=== PATIENT | male | born 1995 | race Caucasian/White ===

== ENCOUNTER 2019-01-14 14:24 | Emergency (ER) | payer BC ==
[~2019-01-14] VITALS: Ht 167.6 cm; Wt 121.1 kg
[2019-01-14 14:50] VITALS: Ht 167.6 cm; Wt 121.1 kg
[2019-01-14 15:21] LABS: BASOPHIL % 0.3 % (0-2); PLATELET COUNT 315 x10^3mcL (130-400); RED CELL DISTRIBUTION WIDTH 13.4 % (11.5-14.5)
[2019-01-14 18:11] VITALS: BP 154/91
== END 2019-01-14 18:11 | disposition home or self-care (01) ==
LOC: ED 14:24
PROVIDERS: Emergency Medicine
DX: K06.8 Other specified disorders of gingiva and edentulous alveolar ridge (principal); Z98.890 Other specified postprocedural states
CPT/HCPCS: 36415

== ENCOUNTER 2019-01-14 22:33 | Emergency (ER) | payer BC ==
[~2019-01-14] VITALS: Ht 167.6 cm; Wt 122.5 kg
[2019-01-14 22:41] VITALS: Ht 167.6 cm; Wt 122.5 kg
[2019-01-15 00:37] VITALS: BP 127/78
== END 2019-01-15 00:37 | disposition home or self-care (01) ==
LOC: ED 22:33
DX: K06.8 Other specified disorders of gingiva and edentulous alveolar ridge (principal); J45.909 Unspecified asthma, uncomplicated; I10 Essential (primary) hypertension

== ENCOUNTER 2019-01-23 08:51 | Emergency (ER) | payer BC ==
[~2019-01-23] VITALS: Ht 170.2 cm; Wt 120.7 kg
[2019-01-23 08:59] VITALS: Ht 170.2 cm; Wt 120.7 kg
[2019-01-23 10:36] LABS: T3 TOTAL 1.27 ng/mL
[2019-01-23 10:44] LABS: FREE T4 0.97 ng/dL (0.76-1.46); FREE THYROXINE INDEX 2.2 ug/dL (1.4-4.5); T4(THYROXINE) 6.8 ug/dL (4.7-13.3)
[2019-01-23 11:23] LABS: CARBON DIOXIDE 25.4 mmol/L (21-32); CHLORIDE SERUM 105 mmol/L (98-107); GLUCOSE SERUM 107 mg/dL (74-106); POTASSIUM SERUM 4.1 mmol/L (3.5-5.1); SODIUM SERUM 141 mmol/L (136-145)
[2019-01-23 11:24] LABS: ALBUMIN 3.9 g/dL (3.4-5.0); ALKALINE PHOSPHATASE 77 U/L (46-116); ALT/SGPT 44 U/L (16-63); AST/SGOT 14 U/L (15-37); BILIRUBIN TOTAL 0.81 mg/dL (0.20-1.00); CALCIUM 9.5 mg/dL (8.5-10.1); CREATININE SERUM 0.9 mg/dL (0.7-1.3); GFR1 > 60 mL/min; TOTAL PROTEIN, SERUM 7.8 g/dL (6.4-8.2)
[2019-01-23 11:37] LABS: AMPHETAMINE QUAL UR NONE DETECTED (See below)
[2019-01-23 13:41] LABS: BASOPHIL % 0.1 % (0-2); PLATELET COUNT 313 x10^3mcL (130-400); RED CELL DISTRIBUTION WIDTH 13.3 % (11.5-14.5)
[2019-01-23 14:53] VITALS: BP 122/72
[2019-01-23 14:54] LABS: UA SPECIFIC GRAVITY 1.025 (1.005-1.035); microscopic required? YES; urine erythrocyte NEGATIVE (NEGATIVE)
== END 2019-01-23 14:53 | disposition home or self-care (01) ==
LOC: ED 08:51
PROVIDERS: Emergency Medicine
DX: R00.2 Palpitations (principal); R55 Syncope and collapse; D72.829 Elevated white blood cell count, unspecified; J45.909 Unspecified asthma, uncomplicated; I10 Essential (primary) hypertension
CPT/HCPCS: 36415; 84439; 85378